=== PATIENT | female | born 1945 ===

== ENCOUNTER → 2024-08-07 10:24 | Outpatient (REF) | payer OTHER, SELFPAY ==
[2024-08-07 11:48] LABS: TSH Reflex To Free T4 2.82 uIU/ml (0.47-4.68)
== END ==
LOC: REG 10:24
PROVIDERS: ATTENDING PHYSICIAN Physician Assistant Medical
DX: E03.9 Hypothyroidism, unspecified (principal)
CPT/HCPCS: 36415; 84443

== ENCOUNTER → 2024-08-10 10:26 | Outpatient (REF) | payer OTHER, SELFPAY | LOC: WDC 10:26 | PROVIDERS: ATTENDING PHYSICIAN Physician Assistant Medical | DX: Z12.31 Encounter for screening mammogram for malignant neoplasm of breast (principal); R10.31 Right lower quadrant pain; R10.32 Left lower quadrant pain | CPT/HCPCS: 74177; 77063; 77067; Q9967 ==

== ENCOUNTER → 2024-11-03 16:51 | Outpatient (REF) | payer OTHER, SELFPAY | LOC: RAD 16:51 | PROVIDERS: ATTENDING PHYSICIAN Physician Assistant Medical | DX: M54.6 Pain in thoracic spine (principal); M54.14 Radiculopathy, thoracic region | CPT/HCPCS: 72072 ==

== ENCOUNTER → 2024-11-09 15:29 | Outpatient (REF) | payer OTHER, SELFPAY | LOC: RAD 15:29 | PROVIDERS: ATTENDING PHYSICIAN Physician Assistant Medical | DX: M54.14 Radiculopathy, thoracic region (principal) | CPT/HCPCS: 72040 ==

== ENCOUNTER → 2025-01-23 13:50 | Outpatient (REF) | payer OTHER, SELFPAY | LOC: MRI 3T 13:50 | PROVIDERS: ATTENDING PHYSICIAN Physician Assistant; FAMILY PHYSICIAN Physician Assistant Medical | DX: M54.12 Radiculopathy, cervical region (principal) | CPT/HCPCS: 72141 ==

== ENCOUNTER 2025-09-27 15:40 | Inpatient (IN) | payer OTHER, SELFPAY ==
--- NOTE | 2025-09-27 09:36 | ED.GENMED ---
History of Present Illness
<Trey Apodaca PA-C - Last Filed: 09/27/25 12:36>
General
Chief Complaint: Weakness
Source: patient and ambulance crew
Time Seen by Provider: 09/27/25 09:32
History of Present Illness
History of Present Illness:
80-year-old female presenting to the emergency department for evaluation of a reported fall 2 days ago and since that time has been mostly bedbound, today was reportedly crawling on the ground, incontinent of urine and had a difficult time standing.
Patient lives at home with her son. Unclear as to contacted EMS today. EMS reports that patient was calm and cooperative for them, answering questions appropriately. Patient does report pain to both knees but states she is still able to range of
motion both knees. There was no reported loss of consciousness, vomiting, headache following the fall. Patient is not on any anticoagulants reportedly. No other concerns at present time.
Past History
<Trey Apodaca PA-C - Last Filed: 09/27/25 12:36>
Social History
Tobacco: Non-smoker
Alcohol: None
Drug: None
Living: with family
Review of Systems
<Trey Apodaca PA-C - Last Filed: 09/27/25 12:36>
Review of Systems
All Other Systems: ROS reviewed and negative except as documented in HPI and ROS
Phy Exam
<Trey Apodaca PA-C - Last Filed: 09/27/25 12:36>
Physical Exam
Physical Exam:
GENERAL: Alert , in no apparent distress, answers questions appropriately but slowly and does seem mildly confused
EYE: clear conjunctiva b/l
HEAD: NCAT
ENT: o/p clr, mmm.
CARDIAC: Regular rate and rhythm .
LUNGS: Clear breath sounds bilaterally, no acute respiratory distress, no wheezes/rales/rhonchi
ABDOMEN: Soft, without focal tenderness, no r/g, no cvat
NEUROLOGICAL: Alert and oriented x 2
SKIN: Warm and dry, skin intact.
MUSCULOSKELETAL: No edema, well perfused. no ecchymosis or signs of trauma
PSYCH: Normal and appropriate interaction.
Scores
<Trey Apodaca PA-C - Last Filed: 09/27/25 12:36>
Heart Failure Risk
Heart Failure Risk Score: Not Applicable
Heart Score for Chest Pain Patients
STEMI patient?: Not applicable
Withdrawal Assessment of Alcohol
Withdrawal Assessment Completed?: Not applicable
Course
<Trey Apodaca PA-C - Last Filed: 09/27/25 12:36>
Orders/Labs/Results
Orders:
Orders
09/27/25 09:36
Electrocardiogram (*1) Urgent
Reason for Study: Fatigue / Weakness
CT Head W/o Iv Contrast Urgent
Comment:
Reason For Exam: fall 2 days ago, weakness
EKG- Treatment ONCE
09/27/25 09:42
Complete Blood Count/With Diff Urgent
Comprehensive Metabolic Panel Urgent
Magnesium Urgent
TSH Urgent
Urinalysis Reflex To Culture Urgent
Date Specimen was Collected: 09/27/25
Time Specimen was Collected: 09:41
Urine Microscopic Reflex Cult Urgent
09/27/25 12:22
Add On- LAB Urgent
Tests Added?: free T4
Abnormal Lab Results
09/27/25
09:42
MCHC 32.9 L g/dL
(33.0-37.0)
MPV 11.8 H fL
(7.4-10.4)
Absolute Monos (auto) 0.8 H 10^3/uL
(0.1-0.6)
Lymphocytes % 16.6 L %
(20.5-51.1)
Chloride 110 H mmol/L
(98-107)
Glucose 103 H mg/dl
(70-99)
Total Bilirubin 2.7 H mg/dl
(0.2-1.3)
AST 41 H U/L
(14-36)
TSH 10.90 H uIU/ml
(0.47-4.68)
Urine Ketones 1+ A
(Negative)
Urine Albumin (Reflex) 1+ A
(Neg - Trace)
09/27/25 09:42
09/27/25 09:42
Vital Signs
Initial and Last Documented VS:
Initial Vital Signs
Temp Pulse Resp Pulse Ox
97.9 F 84 18 100
09/27/25 09:31 09/27/25 09:31 09/27/25 09:31 09/27/25 09:31
Last Documented Vital Signs
Temp Pulse Resp BP Pulse Ox
98.6 F 84 21 161/96 98
09/27/25 12:06 09/27/25 12:06 09/27/25 12:06 09/27/25 12:06 09/27/25 12:06
Michelllt;Henry Graves, DO - Last Filed: 09/27/25 12:25>
Orders/Labs/Results
Orders:
Orders
09/27/25 09:36
Electrocardiogram (*1) Urgent
Reason for Study: Fatigue / Weakness
CT Head W/o Iv Contrast Urgent
Comment:
Reason For Exam: fall 2 days ago, weakness
EKG- Treatment ONCE
09/27/25 09:42
Complete Blood Count/With Diff Urgent
Comprehensive Metabolic Panel Urgent
Magnesium Urgent
TSH Urgent
Urinalysis Reflex To Culture Urgent
Date Specimen was Collected: 09/27/25
Time Specimen was Collected: 09:41
Urine Microscopic Reflex Cult Urgent
09/27/25 12:22
Add On- LAB Urgent
Tests Added?: free T4
Abnormal Lab Results
09/27/25
09:42
MCHC 32.9 L g/dL
(33.0-37.0)
MPV 11.8 H fL
(7.4-10.4)
Absolute Monos (auto) 0.8 H 10^3/uL
(0.1-0.6)
Lymphocytes % 16.6 L %
(20.5-51.1)
Chloride 110 H mmol/L
(98-107)
Glucose 103 H mg/dl
(70-99)
Total Bilirubin 2.7 H mg/dl
(0.2-1.3)
AST 41 H U/L
(14-36)
TSH 10.90 H uIU/ml
(0.47-4.68)
Urine Ketones 1+ A
(Negative)
Urine Albumin (Reflex) 1+ A
(Neg - Trace)
09/27/25 09:42
09/27/25 09:42
Vital Signs
Initial and Last Documented VS:
Initial Vital Signs
Temp Pulse Resp Pulse Ox
97.9 F 84 18 100
09/27/25 09:31 09/27/25 09:31 09/27/25 09:31 09/27/25 09:31
Last Documented Vital Signs
Temp Pulse Resp BP Pulse Ox
98.6 F 84 21 161/96 98
09/27/25 12:06 09/27/25 12:06 09/27/25 12:06 09/27/25 12:06 09/27/25 12:06
<Trey Apodaca PA-C - Last Filed: 09/27/25 12:36>
MDM/Problems Addressed
Differential Diagnosis Includes:
UTI
ICH
Electrolyte imbalance
Viral syndrome
Renal dysfunction
CVA/TIA
MDM/Problems Addressed:
80-year-old female presenting to the ER for evaluation of reported weakness, had a fall 2 days ago, since then has been less ambulatory, today found to be incontinent of urine, unable to stand up on her own. Patient reports some generalized pain
but nothing focal. No sign of trauma on exam. Hemodynamically stable. Will check labs, CT of the head, urine. Disposition pending.
<Trey Apodaca PA-C - Last Filed: 09/27/25 12:36>
*Radiology
Radiology exam reviewed: radiology read reviewed
*Pulse Oximetry
SaO2: 97
Oxygen Mode of Delivery: Room air
Patient hypoxic: no
*EKG
Heart Rate: 78
Rate: normal
Rhythm: sinus
[place]: normal axis
Ischemia: no ischemia
*Biazzi Nitrator Operator Interpretation
Rate: normal
Heart Rate: 71
Rhythm: sinus
*Critical Care Note
Total Time (30-74mins, 75-104mins- exclusive of procedures): Not Applicable
<Trey Apodaca PA-C - Last Filed: 09/27/25 12:36>
Patient Management
Discussion with other providers: Hospitalist
Escalation/DeEscalation of care consider admission/obs:
No acute abnormalities seen on CT imaging. Labs reassuring, slightly elevated TSH, T4 added onto blood work, urine without signs of infection. Patient still seems somewhat confused when answering questions. She does report living with one of her
sons but there is question as to if the son she lives with has some form of disability. I contacted the patient's emergency contact which was her oldest son who states that he was with the mother on Saturday and confirmed that she did have a fall
at that time. He reports she seemed to be okay yesterday but has had these episodes where she will get confused and they are not sure what is causing the symptoms. Older son is currently in [place], traveling home currently. I discussed the
possibility of staying in the hospital and he agrees that this would likely be a good option as patient is not safe to be at home at this time. I did notify the hospitalist team who accepts for continued evaluation and treatment.
ED Attending Note
<Trey Apodaca PA-C - Last Filed: 09/27/25 12:36>
-
Portions of this chart may have been created with voice recognition software.� Occasional wrong word or��sound alike� substitutions may have occurred due to the inherent limitations of voice recognition software.
<Henry Graves DO - Last Filed: 09/27/25 12:25>
ED Attending Note
Patient seen and examined by attending physician: Yes
I performed the substantive portion of visit, reviewed & personally made and approve the management plan that is documented in note by myself or SHARLA.: Yes
ED Attending Note:
I agree with Travon's note
Patient sent to emergency room for confusion. Patient resides at home with her handicapped son. Patient brought to the emergency by ambulance. She is unaware who called 911 that she did not. Patient had a fall couple days ago. Since then she
has been complaining of aches and pains throughout. She is noted to be somewhat confused here. She is unaware of date, time.
General: Awake, Alert, Oriented X3. No acute distress.
Vitals: unremarkable
Head: Atraumatic
Eyes: Pupils equal, EOMI
Throat: Airway intact, no exudates
Neck: Trachea midline
Lungs: Clear and equal b/l
Heart: Regular rate, no murmurs
Abd: Soft, Nontender, No pulsatile mass
Neuro: Cranial nerves intact, muscle strength equal bilaterally, ambulates well
Skin: Warm, dry, no rash
Extremities: pulses equal b/l, no edema
Patient is awake, conversant but does seem somewhat confused. Labs show a mildly elevated T. bili Joseluis and AST. Her TSH is significantly elevated at 10.9. Patient unable to tell us what medication she is taking. No evidence for UTI. CT of the
head shows no acute abnormalities.
Unclear etiology of the patient's altered mental status. Certainly could be progression of underlying dementia. TSH is elevated T4 will be added on. Patient responsible son is out of town. Patient will not be safe to be discharged back to home
at this point.
Discharge Plan
Departure
Patient Disposition: Admit
Date of Disposition: 09/27/25
Time of Disposition: 12:16
Presentation/result/management discussed w/ accepting MD/DO: Hospitalist
Discharge Problem:
Altered mental status
Prescriptions:
No Action
mirtazapine 45 mg Tablet
45 mg PO HS
acetaminophen [Tylenol] 325 mg Tablet
325 mg PO DAILY
Interventions
Interventions:
*Risk Screen - Suicide Last Done: 09/27/25 09:31
*General Assessment Last Done: 09/27/25 10:07
*Neglect/Abuse Screening Last Done: 09/27/25 09:31
*ED- Fall Risk Assessment Last Done: 09/27/25 10:34
*ED COVID-19 Vaccine History Last Done: 09/27/25 09:31
*ED Influenza Vaccine History Last Done: 09/27/25 09:31
ED- Cardiac Assessment Last Done: 09/27/25 10:08
ED- Neurological Assessment Last Done: 09/27/25 10:08
ED- Pulmonary Assessment Last Done: 09/27/25 10:08
Discharge Date and Time
Print Language: KOSOVAN
[2025-09-27 10:17] LABS: Hematocrit 39.2 % (37.0-47.0); Hemoglobin 12.9 g/dL (12.0-16.0); Mean Corp Hgb Conc. 32.9 g/dL (33.0-37.0); Mean Corpuscular Volume 83.8 fL (81.0-99.0); Nucleated Red Blood Cells % 0 %; Platelet Count 207 10^3/uL (130-400); Red Cell Dist. Width 14.2 % (11.5-14.5)
[2025-09-27 10:30] LABS: ALT (SGPT) 35 U/L (0-35); AST (SGOT) 41 U/L (14-36); Albumin 4.4 g/dl (3.5-5.0); Alkaline Phosphatase 66 U/L (38-126); Blood Urea Nitrogen 16 mg/dl (7-17); Calcium 9.2 mg/dl (8.4-10.2); Carbon Dioxide 24 mmol/L (22-30); Chloride 110 mmol/L (98-107); Glucose 103 mg/dl (70-99); Magnesium 2.2 mg/dl (1.6-2.3); Potassium 3.8 mmol/L (3.5-5.1); Sodium 138 mmol/L (135-145); Total Protein 7.4 g/dl (6.3-8.2); eGFR > 60.00
[2025-09-27 11:00] LABS: TSH 10.90 uIU/ml (0.47-4.68)
[2025-09-27 11:09] VITALS: BP 169/81
[2025-09-27 11:31] LABS: Urine Character Clear (Clear)
[2025-09-27 11:38] LABS: Urine Squamous Cell 0-2 /LPF (Few)
[2025-09-27 11:39] LABS: Urine Red Blood Cell 0-2 /HPF (0-2); Urine White Cell 0-2 /HPF (0-5)
[2025-09-27 12:06] VITALS: BP 161/96
--- NOTE | 2025-09-27 14:07 | HPS.HSE ---
Addendum entered and electronically signed by Fabrizio Edward MD 09/27/25 20:39:
Attending Addendum-
I performed a history and physical exam of the patient and discussed his management with the resident. I reviewed the resident's note and agree with the documented findings and plan of care CC/HPI- Patient brought in by EMS/police unclear who called
them. Patient states she had a 2 falls over 2 days ago hit head and right side. Complains if headache and right sided pain. States she wants to go home. Thinks her son called police on her. States she lives with her son who has epilepsy and cares
for him. Full 12 point ROS reviewed and negative except as documented Exam- vitals reviewed in EMR GEN-NAD heart RRR lungs clear abd soft LE no edema Neuro AAOx2 MS 5/5 sensation intact PERRLA
Plan:
# Altered Mental Status
- unclear etiology, unclear baseline
- possibly worsening underlying cognitive impairment
- r/u infectious causes/delirium, check vit b12 folate
# Subclinical Hypothyroidism
- patient with history of hypothyroid and stopped levo
- restart low dose levo
# HTN
- trend
- start meds if persistent
# Falls
- fall precautions
- PT OT
- check xray spine
# Depression/Anxiety- restart Remeron at lower dose
Code-Full
Dispo 24 to 48 hours
ACP
Patient consented to discuss, was alone, time spent explanation of advance directives, changes in health status, patient�s health care wishes if the patient becomes unable to make health decisions, goals of care, code status, and prognosis 'yes i
want to live forever'- 16 minutes
Time spent coordinating care, review of plan of care with resident, personally reviewed previous records in EMR, med rec, labs, radiology, d/w nursing, family total time documented is exclusive of any additional time listed that was spent in advance
care planning discussion -�75 minutes
Original Note:
Family Physician
-
Family Physician: Garry Silverio
Patient states Janelle Lara, PA-C is her PCP.
Chief Complaint
-
Fall x 2, confusion/delirium/AMS/confusion
History of Present Illness
Ms. Joseline Stanford is a 80yoF with PMH notable for hypothyroidism ,melanoma s/p Mohs, HTN, HLD, anxiety/depression, lumar back pain / DDD, cervical radiculopathy, compression fractures, orthostatic hypotension, who presents with 2 falls 2 days
prior to the ED involving hitting her head and reported delirium/AMS from sons.
She was brought in by police a day after her falls. A concerned son may have called the police for transportation, but the patient does not know who called the police. She woke up to seeing the police truck.
She fell twice 2 days prior to admission while cleaning her garage. The first fall, she injured her lower extremities (right knee bruise and left proximal jennings buise on exam). The second fall, she hit her head. She points to the midline top of her
head for where she hit her head.
She denies all of her PMH conditions listed in her external medical summary, suggesting dementia. For past surgical history, she recalls having a cholecystectomy. Also states she had a procedure in her left posterior hip when she was in
school/young.
After medications, she states she only takes mirtazapine and stated she does not remember why she takes it.
Medical History
Past Medical History
Past Medical History: Reports Dementia, HTN, Hypercholesterolemia and Hypothyroidism
Past Surgical History: Reports Cholecystectomy
Social History
Unable to obtain full social history at this time due to: Dementia
Tobacco: Non-smoker
Alcohol: None
Living: With Family (Lives with and cares for son who has seizures (e.g. cooks for son))
Family History
Family History: Cancer (Father passed of lung cancer) and Other (Mother passed of Parkinson disease)
Allergies / Home Medications
Allergies reflects when Allergies were last updated in [facility].
Home Medications with original date entered in [facility]
Allergy/Medication List:
Allergies
Allergy/AdvReac Type Severity Reaction Status Date / Time
codeine AdvReac Unknown Unknown Unverified 09/27/25 14:53
Home Medications
acetaminophen 325 mg tablet (Tylenol) 325 mg PO DAILY MILD PAIN 09/27/25
mirtazapine 45 mg tablet 45 mg PO HS Sleep 09/27/25
If medication reconciliation has not been performed, why?: Dementia
Review of Systems
-
Unable to obtain full review of systems at this time due to: Dementia
History Source: Patient
Respiratory: Reports No Symptoms
Cardiac: Reports No Symptoms
Abdomen/GI: Reports No Symptoms
: Reports No Symptoms
Musculoskeletal: Reports See HPI
Skin: Reports See HPI
Neurological: Reports No Symptoms
Physical Exam
Vital Signs
Vital Signs
Temp Pulse Resp BP Pulse Ox
98.6 F 84 21 161/96 98
09/27/25 12:06 09/27/25 12:06 09/27/25 12:06 09/27/25 12:06 09/27/25 12:06
Physical Exam
General: Well Developed, Well Nourished, No Apparent Distress, Comfortable and Conversant
HEENT: NormoCephalic, Anicteric, Moist mucous membranes, Atraumatic, No Ptosis, Nose Appears Normal and Ears Appear Normal; No Hearing Impaired or Oxygen
Respiratory: Clear and Non Labored Respirations
Cardiac: S1/S2 and Regular Rhythm
GI: Soft, Non Tender, Non Distended, Normal Bowel Sounds and Flat
Musculoskeletal: No Clubbing, No Cyanosis, Normal Gait & Station and Other (Mild pain to palpation of lumbar spine and sacrum, as well as superior skull)
Skin: Warm, Dry and Other (Ecchymoses on right knee and left proximal jennings/tibia)
Neuro: Awake, Alert and Oriented (Oriented to place. Not oriented to year. Not able to state , but able to recognize that it is September when asked.)
Psych: Calm and Apparent Dementia
Laboratory Results
-
09/27/25 09:42
09/27/25 09:42
Laboratory Results
Total Bilirubin 2.7 mg/dl (0.2-1.3) H 09/27/25 09:42
AST 41 U/L (14-36) H 09/27/25 09:42
ALT 35 U/L (0-35) 09/27/25 09:42
Alkaline Phosphatase 66 U/L (38-126) 09/27/25 09:42
Data Reviewed
-
CT Scan: Report Reviewed by me (CT head negative for acute intracranial abnormality. Findings include: Mild to moderate atrophy in this 80-year-old patient. No abnormal extra-axial collection is identified. Callosal angle appears normal, and
findings are not considered highly suggestive of normal pressure hydrocephalus.)
Impression/Plan
-
IMPRESSION:
Ms. Joseline Stanford is a 80yoF with PMH notable for hypothyroidism, melanoma s/p Mohs surgery, HTN, HLD, anxiety/depression, lumbar back pain / DDD, cervical radiculopathy, compression fractures, orthostatic hypotension, who presents with 2 falls
2 days prior to the ED and dementia (as well as delirium/AMS per family).
ED Course:
CMP & CBC unremarkable
TSH elevated at 10-11. Free T4 normal
EKG: NSR
CT head noncon: negative for acute intracranial abnormality
PLAN:
#Falls
#Hit head, knees/shins
#Midline/right posterior lumbar back pain after fall
�CT head noncon: negative for acute intracranial abnormality. Findings include: Mild to moderate atrophy in this 80-year-old patient. Callosal angle appears normal, and findings are not considered highly suggestive of normal pressure hydrocephalus.
�Tylenol 650 mg PO q4h prn
�B12, folate pending
� Lumbar and sacral spine x-rays for lumbar back pain after falls
#Dementia / Delirium / AMS
- Will perform MMSE
#Hypothyroidism
Subclinical: TSH 10.9 high, FT4 1.22 low�normal
Has history of hypothyroidism, but not on thyroid medications at home
- Started levothyroxine 25 mcg/day�as TSH is greater than 10 and AMS/confusion may be symptomatic subclinical hypothyroidism
#HTN
BPs in 160s over 80s to 90s
� Has a history of hypertension, but not on antihypertensives at home. Monitor for now, as patient may be anxious/stressed about new environment/admission
Diet: regular
DVT: Lovenox 40 mg SC qPM
Full code
--- NOTE | 2025-09-27 17:20 | EDCM ---
CM reviewed chart and met with pt bedside in ED. Lives with her disabled son, he has epilepsy. They live in 2 story home. 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 Discussed that her older son was notified,
she told me he is at a conference in [place], ED provider note says he was notified and is on his way home. Pt is confused and increasingly agitated with needing to be admitted.
Pt states she is independent, admits to recent fall but states she is fine to care for herself and her son. Reviewed with her the reasons she is being admitted.
Confirms prescription coverage.
Denies hx of VN or SNF.
PCP: Nahomi Lara at [facility]
Pharmacy: [facility]
Anticipate discharge home, CM will continue to follow for all discharge planning needs.
[2025-09-27 17:32] VITALS: BP 198/90; BMI 22.4
[2025-09-27] MEDS: LOVENOX 40 MG SC (18:36)
[2025-09-27] MEDS: SYNTHROID 25 MCG PO (19:43)
[2025-09-27] MEDS: REMERON 30 MG PO (21:27)
[2025-09-27 23:25] VITALS: BP 145/80
[2025-09-28] MEDS: SYNTHROID 25 MCG PO (06:13)
[2025-09-28 08:03] LABS: Hematocrit 39.1 % (37.0-47.0); Hemoglobin 12.9 g/dL (12.0-16.0); Mean Corp Hgb Conc. 33.0 g/dL (33.0-37.0); Mean Corpuscular Volume 83.7 fL (81.0-99.0); Nucleated Red Blood Cells % 0 %; Platelet Count 217 10^3/uL (130-400); Red Cell Dist. Width 14.2 % (11.5-14.5)
[2025-09-28 08:05] VITALS: BP 174/83
--- NOTE | 2025-09-28 08:13 | W.PN.HOSP.TC ---
Addendum entered and electronically signed by Fabrizio Edward MD 09/28/25 20:58:
Attending Addendum:
I saw and evaluated the patient. I reviewed the resident�s note and agree with findings and plan as documented in the resident�s note. Sub: unable to remember my name but recognizes me. ferry terminal agent memory intact. No complaints wants to go home. Full
12 point ROS reviewed and negative except as documented Exam: Vitals reviewed in chart GEN-NAD heart RRR lungs lcear abd soft LE no edmea Neuro AAO x 2 MS 04/05
Plan:
# Dementia- new dx
- worsening underlying cognitive impairment
- r/u infectious causes/delirium, check vit b12 folate-WNL
- will need increased assistance at home
# Subclinical Hypothyroidism
- patient with history of hypothyroid and stopped levo
- cont low dose levo
# HTN-new
- trend
- start amlodipine
# Falls/sacral l and t spin chronic comp fx
- fall precautions
- PT OT and pain control
- check xray spine-reviewed
# Depression/Anxiety- cont Remeron at lower dose
Code-Full
Dispo- DC home with son that lives in [place]
Time spent coordinating care, DC planning, review of DC plan of care with resident, transition of care, review of records, med rec/scripts sent electronically, consults, notes, d/w consultants, nursing, family, and CM� 31 mins >50% of this time was
devoted to counseling and coordination of care
Original Note:
Today's Communication/Plan
-
Performed SLUMS examination, and patient scored 7-9 points, consistent with dementia.
Spoke with sons Denny and Richard. Patient is caregiver of Richard. Denny believes the patient is not safe to care for Richard and live without supervision, so he is looking into facility/supervision services. Asked case management to assist
patient's son Denny in arranging facilities or supervision to assist with the patient and her other son in the setting of her dementia.
Assessment / Plan
Assessment / Plan
IMPRESSION:
Ms. Joseline Stanford is a 80yoF with PMH notable for hypothyroidism, melanoma s/p Mohs surgery, HTN, HLD, anxiety/depression, lumbar back pain / DDD, cervical radiculopathy, compression fractures, orthostatic hypotension, who presents with 2 falls
2 days prior to the ED and dementia (as well as delirium/AMS per family).
Collateral from son Denny, who lives in [place]
Cognitive concerns
- Dementia: confused about son Richard's meds (4 meds). Sometimes she forgets to give him meds. She forgets she calls Denny and calls him many times over a short period of time.
Med rec: mirtazapine 45 mg daily PO for depression
She was awake at 1 am after 2 falls. Denny told her to take a diazepam, naproxen, and tylenol for DDD back swelling/pain, per instructions from PCP.
�Advised Denny that benzodiazepines, including diazepam, have more side effects, including delirium/confusion, and that benzodiazepines are not first-line for musculoskeletal inflammation/pain.
The patient is the caregiver for his brother Richard. Denny believes the patient Richard should not live by themselves, so he plans to look for facilities/supervision for them.
� Asked pillowcase turner to provide resources for Denny regarding facility/supervision for the patient and her son.
Collateral from son Richard, who lives with patient
Patient is a caregiver for Richard, who has epilepsy.
Richard called police to transport patient to hospital, because the patient was more confused than usual and he could not help get her up from the bathroom floor.
PLAN:
#Falls
#Hit head, knees/shins
#Midline/right posterior lumbar back pain after fall
�CT head noncon: negative for acute intracranial abnormality. Findings include: Mild to moderate atrophy in this 80-year-old patient. Callosal angle appears normal, and findings are not considered highly suggestive of normal pressure hydrocephalus.
�Tylenol 650 mg PO q4h prn. Lidocaine patch
�B12 normal and folate normal (high)
- Hep C antibody pending
Xray lumbar spine and sacrum
- Interval development of age indeterminate mild compression deformities suggested at L1 and L2. Limited views of lower thoracic spine suggest age indeterminate mild compression deformities of T9 and T10. This may be projectional in nature. If
indicated, dedicated radiographic examination of the thoracic spine may be considered.
- Anterior offset of the coccyx relative to the lower sacrum. Findings suggest age indeterminate fracture, though new since prior CT examination.
PT: home health with rolling walker
- Paper script for rolling walker provided
#Dementia / Delirium / AMS
- SLUMS: 7-9 points, consistent with dementia
- Will contact son to discuss whether patient has a safe home to be discharged to
#Hypothyroidism
Subclinical: TSH 10.9 high, FT4 1.22 low�normal
Has history of hypothyroidism, but not on thyroid medications at home
- Started levothyroxine 25 mcg p.o. daily�as TSH is greater than 10 and AMS/confusion may be symptomatic subclinical hypothyroidism
#HTN
BPs in 160s on admission and increased to 190s
� Has a history of hypertension, but not on antihypertensives at home. Monitor for now, as patient may be anxious/stressed about new environment/admission. Received 30 mg mirtazapine on the day of mission
� Start amlodipine 2.5 mg po daily
#Anxiety/depression
� Continue home mirtazapine, but at a lower dose of 30 mg p.o. daily
Diet: regular
DVT: Lovenox 40 mg SC qPM
Full code
Anticipated Discharge: Today
Subjective/Interval History
-
Date of Service: September 28, 2025
No acute events overnight. Patient expressed worry about her head injury from her fall. Reassured the patient that her head CT demonstrated no bleed or acute intracranial abnormality. Patient endorsed continued pain at lower back from the fall.
When asked if the patient felt her pain was adequately controlled on the as needed Tylenol, she stated that she did not want to take more medications.
Performed [facility] SLUMS examination, and patient scored 7-9 points, consistent with dementia.
Objective Data
-
Labs:
Hematology and Coagulation - Last 24 hours
09/28/25 Range/Units
07:24
WBC 7.3 (4.8-10.8) 10^3/uL
RBC 4.67 (4.20-5.40) 10^6/uL
Hgb 12.9 (12.0-16.0) g/dL
Hct 39.1 (37.0-47.0) %
MCV 83.7 (81.0-99.0) fL
MCH 27.6 (27.0-31.0) pg
MCHC 33.0 (33.0-37.0) g/dL
RDW 14.2 (11.5-14.5) %
Plt Count 217 (130-400) 10^3/uL
MPV 12.1 H (7.4-10.4) fL
Abs Immat Gran (auto) 0.0 (0-0.05) 10^3/uL
Absolute Neuts (auto) 4.4 (1.4-6.5) 10^3/uL
Absolute Lymphs (auto) 2.1 (1.2-3.4) 10^3/uL
Absolute Monos (auto) 0.7 H (0.1-0.6) 10^3/uL
Absolute Eos (auto) 0.1 (0-0.7) 10^3/uL
Absolute Basos (auto) 0.1 (0-0.2) 10^3/uL
Immature Gran % 0.4 (0-0.5) %
Neutrophils % 59.7 (42.2-75.2) %
Lymphocytes % 28.3 (20.5-51.1) %
Monocytes % 8.9 (1.7-9.3) %
Eosinophils % 1.9 (0-6) %
Basophils % 0.8 (0-2) %
Nucleated RBC % 0 %
Blood Gas and Chemistry - Last 24 hours
09/28/25 Range/Units
07:24
Sodium 140 (135-145) mmol/L
Potassium 4.1 (3.5-5.1) mmol/L
Chloride 109 H (98-107) mmol/L
Carbon Dioxide 24 (22-30) mmol/L
BUN 20 H (7-17) mg/dl
Creatinine 0.7 (0.6-1.0) mg/dL
Estimated Creat Clear 51 ml/min
eGFR > 60.00
Glucose 104 H (70-99) mg/dl
Calcium 9.0 (8.4-10.2) mg/dl
Magnesium 2.2 (1.6-2.3) mg/dl
Total Bilirubin 1.5 H D (0.2-1.3) mg/dl
AST 38 H (14-36) U/L
ALT 33 (0-35) U/L
Alkaline Phosphatase 62 (38-126) U/L
Total Protein 6.7 (6.3-8.2) g/dl
Albumin 3.9 (3.5-5.0) g/dl
Vitamin B12 689 (239-931) pg/ml
Folate > 20.0 H (2.76-20) ng/ml
Other lab results - Last 24 hours
09/28/25 Range/Units
07:24
Hepatitis C Antibody Negative (Negative)
Vital Signs:
Vital Signs
Temp Pulse Resp BP Pulse Ox
98.9 F 91 16 174/83 98
09/28/25 08:05 09/28/25 08:05 09/28/25 08:05 09/28/25 08:05 09/28/25 08:05
I&O
09/27/25 09/28/25 09/29/25
06:59 06:59 06:59
Intake Total 480 / 480
Balance 480 / 480
Review of Systems
-
History Source: Patient
All other systems: Reviewed and negative
Physical Exam
-
General: Well Developed, Well Nourished, No Apparent Distress, Comfortable and Conversant
HEENT: Normocephalic, Atraumatic, Moist Mucous Membranes, Anicteric, No Ptosis, Nose Appears Normal and Ears Appear Normal
Respiratory: Clear to Auscultation
Cardiac: Regular Rhythm and S1/S2
GI: Soft, Nontender, Nondistended and Normal Bowel Sounds
Musculoskeletal: No Clubbing, No Cyanosis and No Edema
Skin: Warm and Dry
Neuro: Awake and Alert
Psych: Calm and Apparent Dementia
[2025-09-28] MEDS: TYLENOL 650 MG PO (08:22)
[2025-09-28 08:39] LABS: ALT (SGPT) 33 U/L (0-35); AST (SGOT) 38 U/L (14-36); Albumin 3.9 g/dl (3.5-5.0); Alkaline Phosphatase 62 U/L (38-126); Blood Urea Nitrogen 20 mg/dl (7-17); Calcium 9.0 mg/dl (8.4-10.2); Carbon Dioxide 24 mmol/L (22-30); Chloride 109 mmol/L (98-107); Estimated Creatinine Clearance 51 ml/min; Glucose 104 mg/dl (70-99); Magnesium 2.2 mg/dl (1.6-2.3); Potassium 4.1 mmol/L (3.5-5.1); Sodium 140 mmol/L (135-145); Total Protein 6.7 g/dl (6.3-8.2); eGFR > 60.00
[2025-09-28 09:29] LABS: Hepatitis C Antibody Negative (Negative)
[2025-09-28 09:35] LABS: Folate > 20.0 ng/ml (2.76-20); Vitamin B12 689 pg/ml (239-931)
[2025-09-28 10:06] VITALS: BP 165/81; PULSE 81
[2025-09-28] MEDS: NORVASC 2.5 MG PO (11:21)
[2025-09-28] MEDS: LIDOCAINE 4% PATCH 1 PATCH TOPICAL (11:21)
[2025-09-28] MEDS: SENOKOT-S 1 TABLET PO (11:26)
[2025-09-28 12:23] VITALS: BP 110/66
--- NOTE | 2025-09-28 13:28 | CM ---
Addendum entered by Marta Reyez 09/28/25 14:41:
CM spoke with patients son, Denny, confirmed upon d/c patient will be discharged to his address- [address] [place] [id number].
Son agreeable to referral to [facility] as [facility] does not travel to [place].
Son confirms patient has a walker at home- does not need a walker from hospital.
Original Note:
CM reviewed chart, patient seen in chair.
Therapy recommending home health and RW- script placed in chart, therapy able to provide walker.
Patient agreeable to referral to [facility], TT to Deja Chery with referral.
Patient confirms transport home from son when stable.
CM will continue to follow for all d/c needs.
Plan; home with referral to [facility]
--- NOTE | 2025-09-28 13:51 | VNURNOTE ---
Home Health Liaison met with patient at bedside to discuss [facility] nurse/therapy, visits, schedule and homebound status. Patient stated she is familiar with [facility] services. Patient stated she spoke to her older son Denny this AM and plans on going
to his house after DC. Denny lives in [place]. Explained to her that unfortunately [facility] does not service that area. We will help find a VN agency that does go there. Patient agreeable. Left message for son Denny. ANNETTE Gonzalez updated.
No referral placed. [facility] liaison remains available.
[2025-09-28 15:00] VITALS: BP 125/80
--- NOTE | 2025-09-28 16:59 | W.DCSUMMARY ---
Addendum entered and electronically signed by Fabrizio Edward MD 09/28/25 21:00:
Read, reviewed, and agree. See same day progress note for additional details. Discharged with safe plan to son Emy home with VN.
Bebeto Edward MD
Original Note:
Documented by User: Katheryn Kasper MD, Resident 09/28/25 17:14
Discharge Summary
Discharge Data
Date of Admission: 09/27/25
Date of Discharge: 09/28/25
Total time spent discharging patient (in min): 45
-
Pending Results: No
Hospital Course
Ms. Joseline Stanford is a 80yoF with PMH notable for hypothyroidism, melanoma s/p Mohs surgery, HTN, HLD, anxiety/depression, lumbar back pain / DDD, cervical radiculopathy, compression fractures, orthostatic hypotension, who presents with fall 2
days prior to the ED and dementia (as well as delirium/AMS per family).
Collateral was obtained from the patient's 2 sons, since she has signs of dementia (her history was not consistent with that of her sons). 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 After the patient's
fall in her garage when she was clean the garage 2 days prior to admission (per the patient, understated that she was more confused. On the day of admission, Richard found the patient on their bathroom floor, and he was not able to help her stand
up. He called neighbors for help and then called the police to transport patient to hospital.
ED course:
CMP and CBC were unremarkable.
TSH was high at 10.9. Free T4 was low�normal at 1.22.
Vitals stable except for blood pressures in the 160s over 80s to 90s.
It was unclear whether the patient could be discharged safely home after she demonstrated ambulatory dysfunction and had reported increased confusion. She had no supports at home, as her other son was away at a business trip in [place]. He
usually lives in [place]. Thus she was admitted.
For symptomatic (confusion) subclinical hypothyroidism with quite high TSH, levothyroxine 25 mcg/day was started after admission.
Although she seemed anxious and her mirtazapine (at a lower dose of 30 mg) was continued, her blood pressures remain elevated and increased to 190s. She was started on amlodipine 2.5 mg p.o. daily and instructed to follow-up with her primary care
provider for titration of hypertension and thyroid medication.
She scored 7-9 points on the slums exam, consistent with dementia. She and her sons were advised to see neurology outpatient for memory concerns.
For her lumbar back pain after her fall, x-ray demonstrated coccyx fracture. She was counseled that initial management is conservative with analgesics, weight redistribution, and icing. She was discharged with Tylenol as needed and lidocaine
patch.
She was also discharged on mirtazapine 30 mg p.o. daily, levothyroxine 25 mg p.o. daily, and amlodipine 2.5 mg p.o. daily.
Collateral from son Denny, who lives in [place]
Cognitive concerns
- Dementia: confused about son Richard's meds (4 meds). Sometimes she forgets to give him meds. She forgets she calls Denny and calls him many times over a short period of time.
Med rec: mirtazapine 45 mg daily PO for depression
She was awake at 1 am after 2 falls. Denny told her to take a diazepam, naproxen, and tylenol for DDD back swelling/pain, per instructions from PCP.
�Advised Denny that benzodiazepines, including diazepam, have more side effects, including delirium/confusion, and that benzodiazepines are not first-line for musculoskeletal inflammation/pain.
The patient is the caregiver for his brother Richard. Denny believes the patient Richard should not live by themselves, so he plans to look for facilities/supervision for them.
� Asked geriatric case manager to provide resources for Denny regarding facility/supervision for the patient and her son.
Collateral from son Richard, who lives with patient
Patient is a caregiver for Richard,
Imaging studies
CT head Noncon 09/27/2020
No evidence of active cardiopulmonary disease.
Xray lumbar spine and sacrum 09/27/2025
- Interval development of age indeterminate mild compression deformities suggested at L1 and L2. Limited views of lower thoracic spine suggest age indeterminate mild compression deformities of T9 and T10. This may be projectional in nature. If
indicated, dedicated radiographic examination of the thoracic spine may be considered.
- Anterior offset of the coccyx relative to the lower sacrum. Findings suggest age indeterminate fracture, though new since prior CT examination.
#Falls
#Hit head, knees/shins
#Midline/right posterior lumbar back pain after fall
�CT head noncon: negative for acute intracranial abnormality. Findings include: Mild to moderate atrophy in this 80-year-old patient. Callosal angle appears normal, and findings are not considered highly suggestive of normal pressure hydrocephalus.
�Tylenol 650 mg PO q4h prn. Lidocaine patch
�B12 normal and folate normal (high)
- Hep C antibody negative
PT: home health with rolling walker
- Paper script for rolling walker provided
#Dementia / Delirium / AMS
- SLUMS: 7-9 points, consistent with dementia
- Will contact son to discuss whether patient has a safe home to be discharged to
#Hypothyroidism
Subclinical: TSH 10.9 high, FT4 1.22 low�normal
Has history of hypothyroidism, but not on thyroid medications at home
- Started levothyroxine 25 mcg p.o. daily�as TSH is greater than 10 and AMS/confusion may be symptomatic subclinical hypothyroidism
#HTN
BPs in 160s on admission and increased to 190s
� Has a history of hypertension, but not on antihypertensives at home. Monitor for now, as patient may be anxious/stressed about new environment/admission. Received 30 mg mirtazapine on the day of mission
� Start amlodipine 2.5 mg po daily
#Anxiety/depression
� Continue home mirtazapine, but at a lower dose of 30 mg p.o. daily
Discharge Plan
-
Patient Disposition: Home (Routine Discharge)
Discharge Diagnosis/Procedures: Falls
Dementia/confusion
Hypertension
Hypothyroidism
Depression
Condition: Fair
Diet: Low Cholesterol and Low Sodium
Activity: As tolerated
Driving Restrictions: No driving
Bathing Restrictions: None
Other Services: PT
Referrals:
Lola Armenta MD [Active, Neurology] - in three to four weeks
Referral Note: Dementia
Garry Silverio MD [Family Provider, Family Practice] - in less than 1 week
Additional Discharge Medication Instructions: Please see a neurologist for memory concerns.
Your lower back pain is likely due to a fracture of the lower end of your spine (coccyx). Please take Tylenol as needed for pain and do not exceed more than 3000 mg/day. You are also provided lidocaine patches to be applied over your location of
pain. If you feel pain while you are sitting, try to shift your weight forward so that you put less weight on your coccyx. You can use pillows to assist with weight distribution. Please follow-up with your primary provider if your pain does not
go away adequately.
For your elevated blood pressure, please take amlodipine 2.5 mg daily and follow-up on your blood pressure with your primary care provider, as your antihypertensive regimen may need to be adjusted.
For hypothyroidism please take levothyroxine 25 mcg/day and follow-up with your primary care provider regarding whether that dose is sufficient for you.
For anxiety/depression, please take Remeron at 30 mg daily and follow-up with your primary care provider.
Prescriptions:
New
lidocaine 4 % Adhesive Patch,Medicated
1 patch topical DAILY PRN (Reason: pain) 7 Days Qty: 7 0RF
amlodipine 2.5 mg Tablet
2.5 mg PO DAILY Qty: 30 0RF
levothyroxine 25 mcg Tablet
25 mcg PO DAILY @ 0600 Qty: 30 0RF
mirtazapine 30 mg Tablet
30 mg PO HS Qty: 30 0RF
Continued
acetaminophen [Tylenol] 325 mg Tablet
325 mg PO DAILY
Discontinued
mirtazapine 45 mg Tablet
45 mg PO HS
Discharge Orders:
Discharge Patient (As Directed); Ordered 09/28/25
Ordered By: Katheryn Kasper
Discharge Date and Time
Discharge Date/Time: 09/28/25 16:03
Print Language: [place]

Documented by User: Fabrizio Edward MD 09/28/25 20:55
Discharge Summary
Discharge Data
Date of Admission: 09/27/25
Date of Discharge: 09/28/25
Discharge Plan
-
Patient Disposition: Home (Routine Discharge)
Discharge Diagnosis/Procedures: Falls
Dementia/confusion
Hypertension
Hypothyroidism
Depression
Condition: Fair
Diet: Low Cholesterol and Low Sodium
Activity: As tolerated
Driving Restrictions: No driving
Bathing Restrictions: None
Other Services: PT
Referrals:
Lola Armenta MD [Active, Neurology] - in three to four weeks
Referral Note: Dementia
Garry Silverio MD [Family Provider, Family Practice] - in less than 1 week
Additional Discharge Medication Instructions: Please see a neurologist for memory concerns.
Your lower back pain is likely due to a fracture of the lower end of your spine (coccyx). Please take Tylenol as needed for pain and do not exceed more than 3000 mg/day. You are also provided lidocaine patches to be applied over your location of
pain. If you feel pain while you are sitting, try to shift your weight forward so that you put less weight on your coccyx. You can use pillows to assist with weight distribution. Please follow-up with your primary provider if your pain does not
go away adequately.
For your elevated blood pressure, please take amlodipine 2.5 mg daily and follow-up on your blood pressure with your primary care provider, as your antihypertensive regimen may need to be adjusted.
For hypothyroidism please take levothyroxine 25 mcg/day and follow-up with your primary care provider regarding whether that dose is sufficient for you.
For anxiety/depression, please take Remeron at 30 mg daily and follow-up with your primary care provider.
Prescriptions:
New
lidocaine 4 % Adhesive Patch,Medicated
1 patch topical DAILY PRN (Reason: pain) 7 Days Qty: 7 0RF
amlodipine 2.5 mg Tablet
2.5 mg PO DAILY Qty: 30 0RF
levothyroxine 25 mcg Tablet
25 mcg PO DAILY @ 0600 Qty: 30 0RF
mirtazapine 30 mg Tablet
30 mg PO HS Qty: 30 0RF
Continued
acetaminophen [Tylenol] 325 mg Tablet
325 mg PO DAILY
Discontinued
mirtazapine 45 mg Tablet
45 mg PO HS
Discharge Orders:
Discharge Patient (As Directed); Ordered 09/28/25
Ordered By: Katheryn Kasper
Discharge Date and Time
Discharge Date/Time: 09/28/25 16:03
Print Language: [place]
== END 2025-09-28 16:03 | disposition home health service (06) | DRG 884 ==
LOC: 4 WEST ACU 15:40
PROVIDERS: Physician Assistant Medical; ADMITTING PHYSICIAN Family Medicine; EMERGENCY PHYSICIAN Emergency Medicine; FAMILY PHYSICIAN Family Medicine
DX: F03.94 Unspecified dementia, unspecified severity, with anxiety (principal); S32.2XXA Fracture of coccyx, initial encounter for closed fracture; F03.93 Unspecified dementia, unspecified severity, with mood disturbance; I10 Essential (primary) hypertension; E03.8 Other specified hypothyroidism; F32.A Depression, unspecified; W19.XXXA Unspecified fall, initial encounter; E78.00 Pure hypercholesterolemia, unspecified; S80.01XA Contusion of right knee, initial encounter; Y92.015 Private garage of single-family (private) house as the place of occurrence of the external cause; Z90.49 Acquired absence of other specified parts of digestive tract; Z80.1 Family history of malignant neoplasm of trachea, bronchus and lung; Z82.0 Family history of epilepsy and other diseases of the nervous system; Z79.899 Other long term (current) drug therapy; Z85.820 Personal history of malignant melanoma of skin
CPT/HCPCS: 70450; 72110; 72220; 80053; 81003; 81015; 82607; 82746; 83735; 84439; 84443; 85025; 86803; 93005; 97162; 99285